=== PATIENT | male | born 1960 | race Two or more races ===

== ENCOUNTER 2018-06-15 08:52 | Outpatient (RCR) | payer MEDICARE, OTHER ==
--- NOTE | 2018-05-25 08:24 | NUR ---
05/24/17 0841 Pt in office stating that last night he had a panic attack. Pt stated he doesn't know what happened, he came home and was in his room and panicking. Pt states he does not want to harm himself or others. Pt's vitals present as 180/117 for BP, P 70, RR 16, T98.8 Pt denies chest pain, denies SOB. Pt stated that when he had his panic attack, he smoked a joint an felt better. Pt states he also called his sister whom talked him through it. Pt had stated he thought about going to the hospital but started to feel better. RN addressed concern for the high blood pressure. Pt states he has not been taking his Lisinopril. Pt states he hasn't called the pharmacy to find out if he has any refills. Pt states he had coffee and just smoked a cigarette and this could contribute to his high blood pressure. RN educated the client on the importance of taking his medications on time and as prescribed. RN has offered and continues to educate pt on the importance of quitting smoking and has given the pt education material on smoking cessation. Diretor has been made aware of the concern for the patients health. Director is going to meet with the client to have a 1:1 session and then RN will retake the BP. 1148 Patient finished with 1:1. Pt BP is 200/113. Pt states no chestpain, no SOB. positive headache. Call to 911 to transport pt. As per Director, pt wants also to be inpatient [facility] stating pt needs help in managing his thinking. RN spoke with electronic warfare operator #[id number]. Pt txp to hospital via stretcher w/o incident. Pt was alert and oriented x 4. Pt continued to deny chestpain or SOB. Will follow up with pt.
[2018-06-05 10:21] VITALS: BP 155/100
--- NOTE | 2018-06-06 07:13 | NUR ---
06/01/18 1059 Patient called office stating that the other program he was going to attend doesn't accept his insurance. Pt states he wants to come back to [facility]. Pt told that the director will be notified and someone will get back to him in regards to readmission. 1404 Call to patient to make him aware that he can come in tomorrow for possible readmission and to meet with the doctor.
--- NOTE | 2018-06-06 07:31 | NUR ---
06/02/18 0820 Patient in office to sign paper work. Pt signed consent forms and admission paperwork. RN and pt discusssed patients new medications since discharge from [facility]. pt signed consent for [facility]. Pt states he is now on [place] but unsure of the dosage. Pt and RN discuss the usage and side effects of [place]. Pt given information on [place]. 0822 Call to [facility] to obtain patient discharge paperwork.
--- NOTE | 2018-06-06 08:10 | NUR ---
06/05/18 0800 Patient in office for nursing assessment. Patients first BP was 159/101. Pt states he just took his Lisinopril. Pt states he knew it would be high because he had a cigarette and just had a cup of coffee. 0810 Patient BP is 155/100. Patient was recently hospitalized for high blood pressure. pt is due to see his PCP on 06/08/18 and will be addressing this. Pt states no SOB, no chest pain. Pts skin color is warm, pink and dry. Pt states no complaints at this time. Patient given educational information on HTN and diet and information on [place] Toxicity. Copies in chart. pt and RN discussed symptoms of HTN and [place] Toxicity. RN eduated pt on the importance of taking all his medications on time and as prescribed. Will continue to follow up with patient.
--- NOTE | 2018-06-06 10:46 | NUR ---
06/02/18 Patient in today for Treatment team for readmission. Pt presents clean and neat, alert and oriented x 4. Pt was recently hospitalized for HTN and then ribera acted to [facility]. Pt is now taking [place] 300mg BID. Pt asking doctor about refills for Remeron. Doctor gave pt refills for [place] and Remeron. Pt states concern about his drug past and what it may have done to him cognitively. Dr explained to patient that we are treating him accordingly to help with his mental illness and substance abuse. pt stated to doctor that marijuana has helped him with panic attacks and sleeping. Doctor is aware that pt may research the possibility of obtaining medical mariguana. Pt will be readmitted to the program at 5x/week with weekly 1:1. pt denies any suicidal thoughts at present time. Pt will follow up in one month. Treatment team concluded.
--- NOTE | 2018-06-12 07:56 | NUR ---
06/08/[address] Felix office to reschedule for the patient because it is raining and pt does not have transportation. Pt will reschedule to 06/19/18 at 1330. Pt does not need photo id as the doctor already has it through [facility].
--- NOTE | 2018-06-12 08:08 | NUR ---
06/09/18 patient in office asking about Abilify. Pt states he is hearing that Abilify "perks" you up. RN discussed with pt the usages and side effects of Abilify. RN discussed with pt that he is recently on [place]. Pt asked about vitamin b12 stating he is fatigued. RN states to pt that in the past, most of his questions and concerns were about insomnia. (pt on remeron and ambien). Pt given educational material on alternative ways for insomnia and fatigue such as meditation or getting on a regular schedule, exercising etc. RN and Pt discussed that pt has a Hx of substance abuse and that he is going through a difficult time. Will continue to monitor pt.
[~2018-06-15] VITALS: Ht 170.2 cm; Wt 70.3 kg
--- NOTE | 2018-06-15 07:26 | NUR ---
06/14/18 0800 Patient in office stating that he wants to try to see his new PCP sooner than his appointment on 06/19/18. Pt states he feels overwhelmed and wants the doctor to give him something. RN and pt discussed again what coping skills he can use to help him. Pt also stated that he forgot to take his [place] again this morning. RN educated pt on the importance of taking his medications on time and as prescribed. RN recently gave pt information (copy in chart) on the importance of taking [place] on time, as prescribed and discussed the therapeutic lab levels and lithium toxicity. RN and pt also discussed ways for pt to remember to take his medications such as setting alarms on his cell phone. Pt also discussed as he has in the past that he is thinking of getting his marijuana card. Will continue to follow up with pt.
[~2018-06-15 08:52] MED LIST: AMBIEN CR12.5 MG PO; CELEXA20 M1 PO; DALMANE30 MG PO; DEPAKOTE500 MG PO; LITHIUM CARB300 M1 PO; REMERON30 MG PO; ZESTRIL10 M1 PO
[2018-07-17] MEDS ORDERED: IBUPROFEN600 MG PO (07:41)
== END 2018-06-15 23:59 | disposition home or self-care (01) ==
LOC: PATHWAYS 08:52
PROVIDERS: ATTEND Specialist
DX: F31.60 Bipolar disorder, current episode mixed, unspecified (principal); F19.10 Other psychoactive substance abuse, uncomplicated; F19.20 Other psychoactive substance dependence, uncomplicated; Z86.59 Personal history of other mental and behavioral disorders